=== PATIENT | female | born 1965 | race American Indian/Alaskan Native ===

== ENCOUNTER 2017-08-09 12:20 | Outpatient (CLI) | payer OTHER ==
--- NOTE | 2017-08-09 14:46 | Mammography Report ---
Screening mammogram: There is an intermediate fibroglandular pattern which is symmetrically distributed bilaterally. In the posterior left MLO projection there is an incompletely visualized circumscribed density. The findings are not otherwise remarkable in either breast. CAD used. Impression: Left asymmetry. Recommendation: This patient's prior exams are being requested for comparison. Followup recommendation will be made at that time. BI-RADS CATEGORY: 0 = Needs additional imaging evaluation ACR BI-RADS MAMMOGRAPHIC CODES: 0 = Needs additional imaging evaluation; 1 = Negative; 2 = Benign; 3 = Probably benign; 4 = Suspicious; 5 = Malignant; 6 = Known biopsy-proven malignancy COMMENT: 1. Dense breast tissue, i.e., adenosis, fibrocystic changes, etc., may obscure an underlying neoplasm. 2. Approximately 10% of cancers are not detected with mammography. 3. A negative mammography report should not delay biopsy if a clinically suspicious mass is present.
== END 2017-08-09 12:21 | disposition home or self-care (01) ==
LOC: MAMMO 12:20
PROVIDERS: ATTEND Specialist
DX: Z12.31 Encounter for screening mammogram for malignant neoplasm of breast (principal); N64.89 Other specified disorders of breast
CPT/HCPCS: 77067